=== PATIENT | female | born 1990 | race American Indian/Alaskan Native ===

== ENCOUNTER 2018-01-06 18:17 | Emergency (ER) | payer BC ==
[2018-01-06 18:40] VITALS: TEMP 98.5; O2SAT 100
--- NOTE | 2018-01-06 19:23 | ED PDOC ---
HPI: Abdomen Time Seen by Provider: 01/06/18 19:13 Chief Complaint (Nursing): Abdominal Pain Chief Complaint (Provider): Abdominal Pain History Per: Patient History/Exam Limitations: no limitations Onset/Duration Of Symptoms: Days (x1) Additional Complaint(s): Patient is 27 y/o female who is 12 weeks , presenting to the ED complaining of lower abdominal pain described as cramping for the past x1 day. Patient also reports scant vaginal bleeding when wiping after urination as well as decreased movement. Patient denies fever, dysuria, nausea, vomiting, or diarrhea. Past Medical History Reviewed: Historical Data, Nursing Documentation, Vital Signs Vital Signs: Last Vital Signs Temp 98.5 F 01/06/18 18:38 Pulse 69 01/06/18 18:38 Resp 18 01/06/18 18:38 BP 114/75 01/06/18 18:38 Pulse Ox 100 01/06/18 18:38 - Medical History PMH: Asthma (juvenile) - Family History Family History: States: Unknown Family Hx - Immunization History Hx Tetanus Toxoid Vaccination: No Hx Influenza Vaccination: No Hx Pneumococcal Vaccination: Yes - Home Medications Home Medications: Ambulatory Orders Medication Instructions Recorded Progesterone 1 tab PO BID 11/09/17 Doxylamine/Pyridoxine HCl (B6) 1 each PO Q6 #20 tablet. 12/10/17 [Juan Blanchard 10-10 mg Tablet] Naproxen [Naprosyn] 500 mg PO Q12H #20 tab 01/06/18 - Allergies Allergies/Adverse Reactions: Allergies Allergy/AdvReac Type Severity Reaction Status Date / Time No Known Allergies Allergy Verified 01/06/18 18:38 Review of Systems ROS Statement: Except As Marked, All Systems Reviewed And Found Negative Constitutional: Negative for: Fever Gastrointestinal: Positive for: Abdominal Pain. Negative for: Nausea, Vomiting, Diarrhea Genitourinary Female: Positive for: Vaginal Bleeding (scant when wiping after urination). Negative for: Dysuria Physical Exam - Reviewed Nursing Documentation Reviewed: Yes Vital Signs Reviewed: Yes - Physical Exam Appears: Positive for: Well, Non-toxic, No Acute Distress Head Exam: Positive for: ATRAUMATIC, NORMOCEPHALIC Skin: Positive for: Normal Color, Warm, DRY Eye Exam: Positive for: EOMI, Normal appearance, PERRL Gastrointestinal/Abdominal: Positive for: Normal Exam, Soft, Other (Gravid). Negative for: Tenderness Back: Positive for: Normal Inspection. Negative for: L CVA Tenderness, R CVA Tenderness Extremity: Positive for: Normal ROM. Negative for: Pedal Edema, Deformity Neurologic/Psych: Positive for: Alert, Oriented. Negative for: Motor/Sensory Deficits - Laboratory Results Result Diagrams: 01/06/18 19:30 01/06/18 19:30 - ECG O2 Sat by Pulse Oximetry: 100 (RA) Pulse Ox Interpretation: Normal Medical Decision Making Medical Decision Making: Time: : Initial plan: Type and screen beta HCG CMP CBC w/ diff US OB Transvaginal 2220 Transvaginal US Finding COMMENTS: A single intrauterine is identified with crown/rump length of 1.6 cm, which corresponds to the mean estimated gestational age of 8 weeks 0 days. pole is identified. heart motion is not detected. Yolk sac is identified. Gestational sac measures 4.1 cm. This will correlate with age obtained by CRL method. The uterus is anteverted measuring 12.4 x 6.3 x 7 cm. Both ovaries are not visualized. The cervical length is 4.2 cm and the cervix is closed. There is no evidence of free fluid within the pelvic cul-de-sac. IMPRESSION: Single, intrauterine gestation, 8 weeks 6 days (+/- 4 days) based on todays crown/rump length. cardiac activity is not seen, compatible with embryonic demise. Clinical correlation is recommended Electronically signed on Jan 06, 2018 10:21:30 PM EDT by: Dominic Manzo M.D., MBA Certified By [facility] Fellowship Trained MRI and CT Specialist ----- Scribe Attestation: Documented by Rl Alonzo acting as a scribe for Swapnil Slater MD Discussed US and Beta HCG findings with Dr. Davis as well as pt. Will see pt in office Wednesday. Provider Scribe Attestation: All medical record entries made by the Scribe were at my direction and personally dictated by me. I have reviewed the chart and agree that the record accurately reflects my personal performance of the history, physical exam, medical decision making, and the department course for this patient. I have also personally directed, reviewed, and agree with the discharge instructions and disposition. Disposition - Clinical Impression Clinical Impression: demise - Patient ED Disposition Is Patient to be Admitted: No - Disposition Referrals: Dominic Davis DO [Staff Provider] - Disposition: Routine/Home Disposition Time: 23:17 Condition: FAIR Prescriptions: Naproxen [Naprosyn] 500 mg PO Q12H #20 tab Instructions: Miscarriage Forms: [facility] (Sinhala)
[2018-01-06 19:50] LABS: BASO % 0.6 % (0.0-2.0); EOS # 0.1 K/uL (0.0-0.7); EOS % 1.8 % (0.0-4.0); HEMOGLOBIN 10.9 g/dL (12.0-16.0); LYMPH # 2.1 K/uL (1.0-4.3); LYMPH % 32.6 % (20.0-40.0); MEAN CELL VOLUME 93.8 fl (81.0-99.0); MEAN CORPUSCULAR HEMOGLOBIN 31.7 pg (27.0-31.0); MEAN CORPUSCULAR HGB CONC 33.8 g/dL (33.0-37.0); MEAN PLATELET VOLUME 8.7 fl (7.2-11.7); MONO # 0.7 K/uL (0.0-0.8); MONO % 10.9 % (0.0-10.0); NEUT # 3.5 K/uL (1.8-7.0); NEUT % 54.1 % (50.0-75.0); NRBC % 0.1 % (0.0-0.0); RBC 3.45 Mil/uL (3.80-5.20); RED CELL DISTRIBUTION WIDTH 13.5 % (11.5-14.5); WHITE BLOOD COUNT 6.4 K/uL (4.8-10.8)
[2018-01-06 19:59] LABS: ALBUMIN 3.5 g/dL (3.5-5.0); ALT/SGPT 28 U/L (9-52); AST/SGOT 21 U/L (14-36); BLOOD UREA NITROGEN 13 mg/dl (7-17); CALCIUM 8.8 mg/dL (8.4-10.2); GFR NON-AFRICAN AMERICAN > 60
[2018-01-06 23:32] VITALS: BP 116/79; PULSE 90; RESP 20
--- NOTE | 2018-01-07 12:43 | US ---
Date of service: 01/06/2018 PROCEDURE: OB Pelvic Ultrasound HISTORY: Lower abd pain, bleeding LMP: 10/14/2017 COMPARISON: None available. TECHNIQUE: Transabdominal ultrasound examination of the pelvis was performed. Findings UTERUS: Gestational sac: Single intrauterine gestation. Heart rate: 0 bpm. age (Ultrasound estimated): 8 weeks 6 days +/-0 weeks 4 days Adele-gestational hemorrhage: None. Date of delivery (Ultrasound estimated) : 08/12/2018 Uterus measures 12.4 x 6.3 x 7 cm. Normal in size and appearance. CERVIX: The uterine cervix is closed. RIGHT OVARY: Was not clearly visualized LEFT OVARY: Was not clearly visualized FREE FLUID: None. OTHER FINDINGS: None. IMPRESSION: Intrauterine gestational sac with ultrasound estimated gestational age of 8 weeks 6 days +/-0 weeks 4 days. No cardiac activity is appreciated in this study. Findings highly suspicious for embryonic demise. Correlation with beta HCG level and if indicated follow-up ultrasound may be obtained. Preliminary report contain concordant findings was submitted to the referring physician.
== END 2018-01-06 23:32 | disposition home or self-care (01) ==
LOC: H.ER 18:17
DX: O36.4XX1 Maternal care for intrauterine death, fetus 1 (principal); Z3A.08 8 weeks gestation of pregnancy